=== PATIENT | female | born 1990 | race Caucasian/White ===

== ENCOUNTER 2024-07-15 13:30 | Emergency (ER) | payer OTHER ==
[2024-07-15 14:12] VITALS: BP 152/107; PULSE 59; RESP 15; TEMP 98.2; BMI 30.1
[2024-07-15] MEDS ORDERED: IBUPROFEN 400 MG TABLET (FP) PO ONE (14:16)
[2024-07-15] MEDS: IBUPROFEN 400 MG TABLET (FP) PO ONE (14:18)
== END 2024-07-15 14:32 | disposition home or self-care (01) ==
LOC: FER 13:30
DX: M79.645 Pain in left finger(s) (principal); M79.89 Other specified soft tissue disorders
CPT/HCPCS: 99283-25